=== PATIENT | female | born 1970 | race Caucasian/White ===

== ENCOUNTER 2016-06-01 14:08 | Emergency (ER) | payer OTHER ==
[2016-06-01 14:27] VITALS: BMI 20.7
[2016-06-01 14:29] VITALS: TEMP 98.1
--- NOTE | 2016-06-01 15:01 | ED PDOC ---
Arrival/HPI - General Chief Complaint: Headache Time Seen by Provider: 06/01/16 14:18 Historian: Patient, [employer]acher [employer] (Bonderizer: Celeste Bowers #[id number] ) - History of Present Illness Narrative History of Present Illness (Text): 06/01/16 14:58 46 year old female presents with constant frontal headache for the past 3 days. History translated from Swedish. Patient also reports generalized rash for the past few months. Patient reports she had a fever and sore throat last week and was seen by her PMD. Patient reports the fever and sore throat have since resolved. Denies eye pain, cough, shortness of breath, or chest pain. PMD: Dr. Yan Time/Duration: < week Symptom Onset: Gradual Symptom Course: Unchanged Modifying Factors (Text): None Associated Symptoms (Text): None Past Medical History - Provider Review Nursing Documentation Reviewed: Yes - Infectious Disease Hx of Infectious Diseases: None - Psychiatric Hx Substance Use: No Family/Social History - Physician Review Nursing Documentation Reviewed: Yes Family/Social History: Unknown Family HX Smoking Status: Never Smoked Hx Alcohol Use: No Hx Substance Use: No Allergies/Home Meds Allergies/Adverse Reactions: Allergies No Known Allergies Allergy (Verified 11/19/15 09:11) Home Medications: Home Meds Medication Instructions Recorded Confirmed Cephalexin [Keflex] 25 mg PO BID 06/01/16 06/01/16 Hydroxyzine HCl 25 mg PO Q8 06/01/16 06/01/16 Review of Systems - Review of Systems Constitutional: absent: Fevers Eyes: absent: Vision Changes, Eye Pain ENT: Rhinorrhea. absent: Hearing Changes Respiratory: absent: SOB Cardiovascular: absent: Chest Pain, NDIAYE Gastrointestinal: absent: Abdominal Pain, Diarrhea, Nausea, Vomiting Genitourinary Female: absent: Dysuria, Frequency, Hematuria Musculoskeletal: absent: Back Pain Skin: Rash Neurological: Headache. absent: Dizziness, Focal Weakness Endocrine: absent: Diaphoresis Hemo/Lymphatic: absent: Easy Bleeding Psychiatric: absent: Depression Physical Exam - Physical Exam Narrative Physical Exam (Text): Head: Atraumatic. Normocephalic. No bony lesions or scalp rash. Eyes: PERRL. EOMI. Conjunctivae are not pale. ENT: Mucous membranes are moist and intact. Oropharynx is clear and symmetric. Neck: Supple. Full ROM. No JVD. No lymphadenopathy. Cardiovascular: Regular rate. Regular rhythm. No murmurs, rubs, or gallops. Distal pulses are 2+ and symmetric. Pulmonary/Chest: No evidence of respiratory distress. Clear to auscultation bilaterally. No wheezing, rales or rhonchi. Abdominal: Soft and non-distended. There is no tenderness. No rebound, guarding, or rigidity. No organomegaly. Good bowel sounds. Back: No CVA tenderness. Extremities: No edema. No cyanosis. No clubbing. Full range of motion in all extremities. No calf tenderness. Skin: Skin is warm and dry. No petechiae. No purpura. Neurological: Alert, awake, and oriented to person, place, time, and situation. Normal speech. Psychiatric: Good eye contact. Normal interaction, affect, and behavior. 06/01/16 15:41 Vital Signs Reviewed: Yes Vital Signs Temp Pulse Resp BP Pulse Ox 06/01/16 16:34 70 18 95/60 L 100 06/01/16 15:47 86 18 121/59 L 97 06/01/16 14:09 98.1 F 93 H 16 120/55 L 97 Temperature: Afebrile Blood Pressure: Normal Pulse: Regular Respiratory Rate: Normal Appearance: Positive for: Well-Appearing, Non-Toxic, Comfortable Pain Distress: None Mental Status: Positive for: Alert and Oriented X 3 Medical Decision Making ED Course and Treatment: Differential Diagnosis included but are not limited to: Plan: Progress Notes: CT Head Pet Adoption Counselor: Dr. Sergio Lozoya IMPRESSION: Normal CT of the Head. - Lab Interpretations Lab Results: 06/01/16 15:15 06/01/16 16:00 Lab Results 06/01/16 16:00: Sodium 138, Potassium 3.9, Chloride 102, Carbon Dioxide 27, Anion Gap 13, BUN 12, Creatinine 0.6, Est GFR ( Amer) > 60, Est GFR (Non- Af Amer) > 60, Random Glucose 103, Calcium 8.6, Total Bilirubin 0.7, AST 47 H, ALT 36, Alkaline Phosphatase 77, Total Protein 8.4 H, Albumin 4.0, Globulin 4.3 , Albumin/Globulin Ratio 0.9 L 06/01/16 15:15: WBC 3.2 L D, RBC 4.78, Hgb 11.3 L, Hct 34.3 L, MCV 71.8 L, MCH 23.6 L, MCHC 32.9, RDW 16.8 H, Plt Count 277, MPV 9.5, Gran % 48.6 L, Lymph % ( Auto) 38.2 H, [place] % (Auto) 10.2 H, Eos % (Auto) 2.0, Baso % (Auto) 1.0, Gran # 1.48, Lymph # 1.2, [place] # 0.3, Eos # 0.1, Baso # 0.03 - RAD Interpretation Radiology Orders: 06/01/16 14:58 HEAD W/O CONTRAST [CT] Stat Database Designer: Radiologist - Medication Orders Current Medication Orders: Discontinued Medications Ketorolac Tromethamine (Toradol) 30 mg IVP ONCE ONE Stop: 06/01/16 16:26 Last Admin: 06/01/16 17:01 Dose: 30 MG IVP Administration Document 06/01/16 17:01 SF (Rec: 06/01/16 17:01 [email or web address]) Charges for Administration # of IVP Administrations 1 - Scribe Statement The provider has reviewed the documentation as recorded by the Sean Bryson Provider Scribe Attestation: All medical record entries made by the Sean were at my direction and personally dictated by me. I have reviewed the chart and agree that the record accurately reflects my personal performance of the history, physical exam, medical decision making, and the department course for this patient. I have also personally directed, reviewed, and agree with the discharge instructions and disposition. Disposition/Present on Arrival - Present on Arrival History of DVT/PE: No History of Uncontrolled Diabetes: No Urinary Catheter: No History of Decub. Ulcer: No History Surgical Site Infection Following: None - Disposition Diagnosis: Headache Disposition: HOME/ ROUTINE Patient Problems: Current Active Problems Problem Status Diagnosed Headache Acute Condition: GOOD Discharge Instructions (ExitCare): Acute Headache (ED) Additional Instructions: For any fever, any chest pain or shortness of breath, any unsteadiness, any weakness, any visual symptoms, any neck pain, any return of headache or change in character or intensity of headache, get rechecked. Follow-up with your primary care doctor in 1-2 days. Return to ED for any worsening of symptoms. Prescriptions: Naproxen [Naprosyn Tab] 250 mg PO BID PRN #10 tab PRN Reason: Pain, Mild (1-3) Referrals: Chinmay Yan MD [Primary Care Provider] - Follow up with primary Chago Baumann MD [Staff Provider] - Follow up with primary
[2016-06-01 15:30] LABS: ADD MANUAL DIFF? NO
[2016-06-01 15:36] LABS: BASO # 0.03 K/mm3 (0.0-2.0); EOS # 0.1 (0.0-0.7); GRAN # 1.48 (1.4-6.5); GRAN % 48.6 % (50.0-68.0); HEMATOCRIT 34.3 % (36.0-48.0); LYMPH # 1.2 (1.2-3.4); LYMPH % 38.2 % (22.0-35.0); MEAN CELL VOLUME 71.8 fL (80.0-105.0); MEAN CORPUSCULAR HEMOGLOBIN 23.6 pg (25.0-35.0); MEAN CORPUSCULAR HGB CONC 32.9 g/dl (31.0-37.0); MEAN PLATELET VOLUME 9.5 fl (7.0-11.0); MONO # 0.3 (0.1-0.6); MONO % 10.2 % (1.0-6.0); PLATELET COUNT 277 10^3/uL (120.0-450.0); RED CELL DISTRIBUTION WIDTH 16.8 % (11.5-14.5)
[2016-06-01 15:44] LABS: WHITE BLOOD COUNT 3.2 10^3/ul (4.5-11.0)
--- NOTE | 2016-06-01 15:50 | CT ---
PROCEDURE: CT HEAD WITHOUT CONTRAST. HISTORY: headache for three days COMPARISON: None available. TECHNIQUE: Axial computed tomography images were obtained through the head/brain without intravenous contrast. Radiation dose: Total exam DLP = mGy-cm. FINDINGS: HEMORRHAGE: No intracranial hemorrhage. BRAIN: No mass effect or edema. No atrophy or chronic microvascular ischemic changes. VENTRICLES: Unremarkable. No hydrocephalus. CALVARIUM: Unremarkable. PARANASAL SINUSES: Unremarkable as visualized. No significant inflammatory changes. MASTOID AIR CELLS: Unremarkable as visualized. No inflammatory changes. OTHER FINDINGS: None. IMPRESSION: Normal CT of the Head.
[2016-06-01 16:27] LABS: ALB/GLOB RATIO 0.9 (1.1-1.8); ALKALINE PHOSPHATASE 77 U/L (38-133); ALT/SGPT 36 U/L (7-56); AST/SGOT 47 U/L (15-39); BILIRUBIN,TOTAL 0.7 mg/dL (0.2-1.3); BLOOD UREA NITROGEN 12 mg/dL (7-21); CALCIUM 8.6 mg/dL (8.4-10.5); CARBON DIOXIDE 27 mmol/L (21-33); CHLORIDE 102 mmol/L (98-107); GFR AFRICAN-AMERICAN > 60; GLUCOSE,RANDOM 103 mg/dL (70-110); POTASSIUM 3.9 mmol/L (3.6-5.0); SODIUM 138 mmol/L (132-148); TOTAL PROTEIN 8.4 g/dL (5.8-8.3)
[2016-06-01 18:42] VITALS: BP 123/73; PULSE 71; RESP 16; O2SAT 99
== END 2016-06-01 18:39 | disposition home or self-care (01) ==
LOC: ED 14:08
DX: R51 Headache (principal)
CPT/HCPCS: 70450; 80053; 82948; 85025; 96374; 99285; J1885

== ENCOUNTER 2017-05-09 13:19 | Emergency (ER) | payer OTHER ==
[2017-05-09 13:21] VITALS: BMI 20.7
[2017-05-09] MEDS ORDERED: DiphenhydrAMINE 50 mg/ml Inj IVP STA (14:20)
[2017-05-09] MEDS ORDERED: Famotidine 20mg/50ml 20 MG/50 ML BAG IVPB STA (14:20)
--- NOTE | 2017-05-09 14:24 | ED PDOC ---
Arrival/HPI - General Chief Complaint: Allergic Reaction Time Seen by Provider: 05/09/17 14:19 Historian: Patient - History of Present Illness Narrative History of Present Illness (Text): 05/09/17 14:20 This 47 yo female with a pmh urticaria, presents to this ED c/o skin rash x 2 days. Patient admits she has multiple symptoms in the past. Patient was recommended to f/u allergy doctor. Patient is currently taking Zyrtec daily. Patient denies fever, sob, cp, abdominal pain, dysphagia, dizziness, new pets, new medication, new perfumes, urinary symptoms or abnormal gait. Patient requested "steroid" for allergy medication. Time/Duration: Other (see hpi) Context: Home Past Medical History - Provider Review Nursing Documentation Reviewed: Yes - Infectious Disease Hx of Infectious Diseases: None - Psychiatric Hx Substance Use: No Family/Social History - Physician Review Nursing Documentation Reviewed: Yes Family/Social History: Other (noncontributory) Smoking Status: Never Smoked Hx Alcohol Use: No Hx Substance Use: No Allergies/Home Meds Allergies/Adverse Reactions: Allergies nickel Allergy (Verified 05/09/17 13:40) RASH paraben Allergy (Verified 05/09/17 13:40) RASH sorbitan esters Allergy (Verified 05/09/17 13:40) RASH tree and shrub pollen Allergy (Verified 05/09/17 13:40) RASH Home Medications: Home Meds Medication Instructions Recorded Confirmed Amitriptyline HCl 10 mg PO HS 05/09/17 05/09/17 Cetirizine HCl [Aller-Rogers] 20 mg PO DAILY 05/09/17 05/09/17 Review of Systems - Review of Systems Constitutional: Normal. absent: Fatigue, Weight Change, Fevers Eyes: Normal ENT: Normal. absent: Tinnitus, Sore Throat, Rhinorrhea Respiratory: Normal. absent: SOB, Cough Cardiovascular: Normal. absent: Chest Pain Gastrointestinal: Normal. absent: Abdominal Pain, Nausea, Vomiting Genitourinary Female: Normal. absent: Dysuria, Frequency, Hematuria Musculoskeletal: Normal. absent: Back Pain, Neck Pain, Joint Swelling, Myalgias Skin: Rash, Pruritis. absent: Skin Lesions, Laceration, Abscess, Ulcer, Cellulitis Neurological: Normal. absent: Headache, Dizziness, Focal Weakness, Gait Changes , Speech Changes, Facial Droop, Disequilibrium, Seizure Endocrine: Normal Hemo/Lymphatic: Normal Psychiatric: Normal Physical Exam Vital Signs Temp Pulse Resp BP Pulse Ox 05/09/17 15:33 103 H 18 101/54 L 100 05/09/17 13:21 98.3 F 99 H 18 101/54 L 99 Temperature: Afebrile Blood Pressure: Normal Pulse: Regular Respiratory Rate: Normal Appearance: Positive for: Well-Appearing, Non-Toxic, Comfortable Pain Distress: None Mental Status: Positive for: Alert and Oriented X 3 - Systems Exam Head: Present: Atraumatic, Normocephalic Mouth: Present: Moist Mucous Membranes, Normal Lips, Normal Tounge. No: Drooling, Trismus Pharnyx: Present: Normal. No: ERYTHEMA, EXUDATE, TONSILS ENLARGED Neck: Present: Normal Range of Motion. No: Meningeal Signs Respiratory/Chest: Present: Clear to Auscultation, Good Air Exchange. No: Respiratory Distress, Accessory Muscle Use, Wheezes, Decreased Breath Sounds, Rales, Retracting, Rhonchi, Tachypneic Cardiovascular: Present: Regular Rate and Rhythm, Normal S1, S2. No: Murmurs Abdomen: No: Tenderness Back: Present: Normal Inspection. No: CVA Tenderness Upper Extremity: Present: Normal Inspection, Normal ROM Lower Extremity: Present: Normal Inspection, Normal ROM Neurological: Present: GCS=15, CN II-XII Intact, Speech Normal, Motor Func Grossly Intact, Normal Sensory Function, Normal Cerebellar Funct, Gait Normal Skin: Present: Warm, Dry, Rashes ((+) generalized urticaria like rash, blanches on palaption. No cellulitis), Normal Color Psychiatric: Present: Alert, Oriented x 3, Normal Insight, Normal Concentration Medical Decision Making ED Course and Treatment: 05/09/17 14:29 I reviewed the risk of using Solumedrol with patient which includes AVN, osteoporosis, diabetes, glaucoma, renal failure, liver failure, or worsen of rash. She understood risk, and she still want to have Solumedrol, and also to get a prescription for Prednisone. 05/09/17 15:54 Re-evaluation. Patient feels better. Discussed results and plan with patient who expresses understanding. All questions answered and there is agreement with the plan to discharge home with instructions. Patient stable for discharge. Return if symptoms persist or worsen. Patient was recommended to f/u pmd in 1-2 days. To take medication as instructed. She was told to stop Prednisone at anytime once rash has improved. Patient stated she will call her wood tool maker, and set up appointment with her Allergy doctor. Patient was recommended to return to ED if rash worsen, shortness of breath, dizziness, or fever. Re-evaluation Time: 15:54 Reassessment Condition: Re-examined, Improved - Medication Orders Current Medication Orders: Discontinued Medications Diphenhydramine HCl (Benadryl) 50 mg IVP STAT STA Stop: 05/09/17 14:21 Last Admin: 05/09/17 14:47 Dose: 50 mg IVP Administration Document 05/09/17 14:47 GMD (Rec: 05/09/17 14:47 GMD [id number]) Charges for Administration # of IVP Administrations 1 Famotidine (Pepcid 20mg/50ml Premix) 20 mg in 50 mls @ 100 mls/hr IVPB STAT STA Stop: 05/09/17 14:49 Last Admin: 05/09/17 14:46 Dose: 100 mls/hr eMAR Start Stop Document 05/09/17 14:46 GMD (Rec: 05/09/17 14:47 GMD [id number]) Intravenous Solution Start Date 05/09/17 Start Time 14:47 End Date 05/09/17 End time 15:17 Total Infusion Time 30 Sodium Chloride (Sodium Chloride 0.9%) 500 mls @ 999 mls/hr IV .Q31M STA Stop: 05/09/17 15:18 Last Admin: 05/09/17 14:56 Dose: 999 mls/hr eMAR Start Stop Document 05/09/17 14:56 GMD (Rec: 05/09/17 14:56 D [id number]) Intravenous Solution Start Date 05/09/17 Start Time 14:56 End Date 05/09/17 End time 15:26 Total Infusion Time 30 Methylprednisolone (Solu-Medrol) 125 mg IVP STAT STA Stop: 05/09/17 14:20 Last Admin: 05/09/17 14:47 Dose: 125 mg IVP Administration Document 05/09/17 14:47 GMD (Rec: 05/09/17 14:47 GMD [id number]) Charges for Administration # of IVP Administrations 1 Disposition/Present on Arrival - Present on Arrival Any Indicators Present on Arrival: No History of DVT/PE: No History of Uncontrolled Diabetes: No Urinary Catheter: No History of Decub. Ulcer: No History Surgical Site Infection Following: None - Disposition Have Diagnosis and Disposition been Completed?: Yes Diagnosis: Rash and nonspecific skin eruption, Urticaria Disposition: HOME/ ROUTINE Disposition Time: 15:58 Patient Plan: Discharge Condition: IMPROVED Discharge Instructions (ExitCare): Hives, Skin Rash Additional Instructions: Call private [employer] Bench Operator and private doctor for revaluation in 1-2 days. Take medication as instructed. Return to emergency if rash worsen. Stop Prednisone at any time once rash completely improved. Take OTC Benadryl for itching as needed. Prescriptions: Famotidine [Pepcid] 40 mg PO DAILY #10 tablet Prednisone [Deltasone] 40 mg PO DAILY #8 tablet Referrals: Chinmay Yan MD [Primary Care Provider] - Follow up with primary Forms: [facility] ([place]), WORK NOTE
[2017-05-09] MEDS ORDERED: Sodium Chloride 0.9% 500 ML IV STA (14:48)
[2017-05-09 15:03] VITALS: RESP 18; TEMP 98.3
[2017-05-09 15:33] VITALS: O2SAT 100
[2017-05-09 16:11] VITALS: BP 103/58; PULSE 98
== END 2017-05-09 16:38 | disposition home or self-care (01) ==
LOC: ED 13:19
DX: L50.9 Urticaria, unspecified (principal)
CPT/HCPCS: 96365; 96375; 99285; J1200; J2930; J7040